=== PATIENT | male | born 1950 | race Hispanic/Latino ===

== ENCOUNTER 2018-02-02 11:19 | Day surgery (SDC) | payer MEDICARE ==
[2018-02-02] MEDS ORDERED: AK-Dilate ONE ×2 (11:50→11:53)
[2018-02-02] MEDS ORDERED: MYDRIACYL ONE (11:50)
[2018-02-02 11:51] VITALS: BP 110/70
[2018-02-02] MEDS ORDERED: IOPIDINE ONE (11:51)
[2018-02-02] MEDS ORDERED: IOPIDINE OU ONE (12:23)
[2018-02-02] MEDS ORDERED: AK-Dilate OU ONE (12:25)
[2018-02-02] MEDS ORDERED: MYDRIACYL OU ONE (12:26)
== END 2018-02-02 12:44 | disposition home or self-care (01) ==
LOC: OR 11:19
PROVIDERS: ATTEND Ophthalmology
DX: H26.492 Other secondary cataract, left eye (principal); I10 Essential (primary) hypertension; G47.30 Sleep apnea, unspecified; K21.9 Gastro-esophageal reflux disease without esophagitis; N40.0 Benign prostatic hyperplasia without lower urinary tract symptoms; M19.90 Unspecified osteoarthritis, unspecified site; G62.9 Polyneuropathy, unspecified; F17.200 Nicotine dependence, unspecified, uncomplicated; Z99.89 Dependence on other enabling machines and devices; Z90.49 Acquired absence of other specified parts of digestive tract; Z98.42 Cataract extraction status, left eye; Z98.41 Cataract extraction status, right eye; Z98.890 Other specified postprocedural states